=== PATIENT | male | born 1950 | race Caucasian/White ===

== ENCOUNTER 2016-11-22 14:09 | Outpatient (CLI) | payer MEDICARE, OTHER | END 2016-11-22 14:10 | disposition short-term general hospital (02) | DX: R09.89 Other specified symptoms and signs involving the circulatory and respiratory systems (principal) | CPT/HCPCS: A0170; A0425; A0429 ==

== ENCOUNTER 2016-11-27 21:11 | Emergency (ER) | payer MEDICARE, OTHER ==
--- NOTE | 2016-11-27 21:51 | ED Physician Documentation ---
PD HPI MALE - Stated complaint Stated Complaint: MALE - Chief complaint Chief Complaint: Abd Pain - History obtained from History obtained from: Patient - History of Present Illness Timing - onset: Today (he had had urinary retention and had villalba placed last week, with removal of it this morning as voiding trial. He still had retention so villalba replaced this afternoon. He developed blood in villalba soon after replacement (but had left the Urologist office). Having some feeling of blockage out the villalba this evening. Call Urologist who directed him to come and get it irrigated.) Timing - duration: Hours Timing - details: Gradual onset, Still present Associated symptoms: Hematuria, Villalba problem Review of Systems Constitutional: denies: Fever, Chills : reports: Hematuria PD PAST MEDICAL HISTORY - Past Medical History Cardiovascular: Congestive heart failure, Hypertension, Atrial fibrillation Respiratory: Other Neuro: CVA GI: Other : Benign prostate hypertrophy Other Past Medical History: CKD - Present Medications Home Medications: Ambulatory Orders Medication Instructions Recorded Confirmed Aspirin 81 mg PO DAILY 11/27/16 11/27/16 Benazepril HCl 40 mg PO DAILY 11/27/16 11/27/16 Cholecalciferol (Vitamin D3) 2,000 units PO PRN PRN 11/27/16 11/27/16 [Vitamin D3] Doxazosin [Cardura] 2 mg PO DAILY 11/27/16 11/27/16 Furosemide 20 mg PO DAILY 11/27/16 11/27/16 Ipratropium/Albuterol Sulfate 3 ml IH PRN PRN 11/27/16 11/27/16 [Iprat-Albut 0.5-3(2.5) mg/3 ml] [place]-3/Dha/Epa/Fish Oil [Fish Oil 1,000 mg PO DAILY 11/27/16 11/27/16 1,000 mg Softgel] Omeprazole 20 mg PO DAILY 11/27/16 11/27/16 Phenazopyridine [Pyridium] 200 mg PO TID PRN #15 tablet 11/27/16 Pravastatin [Pravachol] 40 mg ORAL DAILY 11/27/16 11/27/16 Tamsulosin [Flomax] 0.4 mg PO DAILY 11/27/16 11/27/16 - Allergies Allergies/Adverse Reactions: Allergies Allergy/AdvReac Type Severity Reaction Status Date / Time codeine AdvReac Unknown Verified 11/27/16 21:20 - Social History Does the pt smoke?: Yes Smoking Status: Current every day smoker Does the pt drink ETOH?: Yes Does the pt have substance abuse?: No - Immunizations Immunizations: TDAP >10years/unknown PD ED PE NORMAL - Vitals Vital signs reviewed: Yes - General General: Alert and oriented X 3, No acute distress, Well developed/nourished - Cardiac Cardiac: RRR, No murmur - Respiratory Respiratory: Clear bilaterally - Male Male : Other (villalba in place; no blood from the meatus. Blood with clots in the villalba. ) - Rectal Rectal: Deferred - Back Back: No CVA TTP - Derm Derm: Normal color, Warm and dry Results - Vitals Vitals: Vital Signs - 24 hr 11/27/16 11/27/16 21:15 23:10 Temperature 36.7 C Heart Rate 86 62 Respiratory 18 16 Rate Blood Pressure 191/89 H 198/106 H O2 Saturation 95 95 Oxygen O2 Source Room air PD MEDICAL DECISION MAKING - ED course Complexity details: considered differential (nurse drained/irrigated the villalba and it drained well. ) Departure - Departure Disposition: 01 Home, Self Care Clinical Impression: Villalba catheter problem Qualifiers: Encounter type: initial encounter Qualified Code(s): T83.9XXA - Unspecified complication of genitourinary prosthetic device, implant and graft, initial encounter Condition: Stable Record reviewed to determine appropriate education?: Yes Instructions: ED Catheter Care Villalba Follow-Up: Joyce Swanson MD [Primary Care Provider] - Prescriptions: Phenazopyridine [Pyridium] 200 mg PO TID PRN #15 tablet PRN Reason: Pain Comments: Drink lots of fluids. Phenazopyridine as needed for discomfort. Tylenol for pain as needed. Discharge Date/Time: 11/27/16 23:19
[2016-11-27] MEDS ORDERED: HYDROcod/ACETAM 5/325 MG TABLET PO STA (22:56)
[2016-11-27] MEDS ORDERED: PHENAZOPYRIDINE 100 MG TABLET PO STA (22:56)
[2016-11-27] MEDS ORDERED: HYDROcod/ACETAM 5/325 MG TABLET ONE (23:03)
[2016-11-27] MEDS ORDERED: PHENAZOPYRIDINE 100 MG TABLET PO ONE ×2 (23:04)
[2016-11-27 23:12] VITALS: BP 198/106
== END 2016-11-27 23:19 | disposition home or self-care (01) ==
LOC: ED 21:11
DX: T83.098A Other mechanical complication of other urinary catheter, initial encounter (principal); I12.9 Hypertensive chronic kidney disease with stage 1 through stage 4 chronic kidney disease, or unspecified chronic kidney disease; N18.9 Chronic kidney disease, unspecified; Z86.73 Personal history of transient ischemic attack (TIA), and cerebral infarction without residual deficits; F17.200 Nicotine dependence, unspecified, uncomplicated; Z79.82 Long term (current) use of aspirin
CPT/HCPCS: 99282; 99283; A9270

== ENCOUNTER 2016-12-02 22:54 | Emergency (ER) | payer MEDICARE, OTHER ==
[2016-12-03] LABS: PH,URINE 5.5 PH (5.0-7.5)
[2016-12-03 00:05] LABS: BILIRUBIN,URINE NEGATIVE (NEGATIVE)
[2016-12-03] MEDS ORDERED: TRIAMCINOLONE 0.1% CREAM 15 GM TUBE TOP STA (00:15)
[2016-12-03] MEDS ORDERED: CIPROFLOXACIN 250 MG TABLET PO STA (01:45)
[2016-12-03] MEDS ORDERED: CIPROFLOXACIN 250 MG TABLET PO ONE (01:50)
--- NOTE | 2016-12-03 02:12 | ED Physician Documentation ---
History of Present Illness - Stated complaint Stated Complaint: CATHETER PAIN - Chief complaint Chief Complaint: Abd Pain - Additonal information Additional information: Patient is a 66-year-old man who presents with leakage of urine from around his Rowe catheter. This patient was diagnosed with acute urinary retention 3 days ago and a Rowe catheter was placed. He had complicating clots required replacement of the Rowe catheter with a 3 lm type. He presents tonight with the complaint of decreased urine output and increasing lower abdominal pain. He denies any fever or chills. There is no chest pain, shortness of breath, nausea, vomiting constipation or diarrhea. He does have a history of congestive heart failure but he feels that his symptoms are well controlled. He also has a history of chronic kidney disease. He says he has blood work done 3 days ago that was reviewed and felt to be unchanged. He has a follow-up appointment with urology on Sunday at which point in time they will try and remove the Rowe catheter. Review of systems: For pertinent positive and negatives in the review of systems please see history of present illness. Otherwise all other systems have been reviewed and are negative. Dragon disclaimer: Parts of this medical record were created using voice recognition technology. Because of the inherent limitations of this system occasional same sounding word substitutions do occur and persist despite proofreading. Please read the document for context. Review of Systems Ten Systems: 10 systems reviewed and negative Constitutional: denies: Fever, Chills, Myalgias Cardiac: denies: Chest pain / pressure, Palpitations Respiratory: denies: Dyspnea, Cough GI: reports: Abdominal Pain, Abdominal Swelling. denies: Nausea, Vomiting : reports: Unable to Void, Hematuria Musculoskeletal: denies: Neck pain, Back pain, Extremity pain, Joint pain, Extremity swelling Neurologic: denies: Generalized weakness, Focal weakness, Numbness, Difficulty speaking PD PAST MEDICAL HISTORY - Past Medical History Cardiovascular: Congestive heart failure, Hypertension, Atrial fibrillation Respiratory: Other Neuro: CVA GI: Other : Benign prostate hypertrophy - Present Medications Home Medications: Ambulatory Orders Medication Instructions Recorded Confirmed Aspirin 81 mg PO DAILY 11/27/16 11/27/16 Benazepril HCl 40 mg PO DAILY 11/27/16 11/27/16 Cholecalciferol (Vitamin D3) 2,000 units PO PRN PRN 11/27/16 11/27/16 [Vitamin D3] Doxazosin [Cardura] 2 mg PO DAILY 11/27/16 11/27/16 Furosemide 20 mg PO DAILY 11/27/16 11/27/16 Ipratropium/Albuterol Sulfate 3 ml IH PRN PRN 11/27/16 11/27/16 [Iprat-Albut 0.5-3(2.5) mg/3 ml] [place]-3/Dha/Epa/Fish Oil [Fish Oil 1,000 mg PO DAILY 11/27/16 11/27/16 1,000 mg Softgel] Omeprazole 20 mg PO DAILY 11/27/16 11/27/16 Phenazopyridine [Pyridium] 200 mg PO TID PRN #15 tablet 11/27/16 Pravastatin [Pravachol] 40 mg ORAL DAILY 11/27/16 11/27/16 Tamsulosin [Flomax] 0.4 mg PO DAILY 11/27/16 11/27/16 Ciprofloxacin HCl [Cipro] 500 mg PO BID #6 tablet 12/03/16 - Allergies Allergies/Adverse Reactions: Allergies Allergy/AdvReac Type Severity Reaction Status Date / Time codeine AdvReac Unknown Verified 12/02/16 23:10 - Social History Does the pt smoke?: Yes Smoking Status: Current every day smoker Does the pt drink ETOH?: Yes Does the pt have substance abuse?: No - Immunizations Immunizations: TDAP >10years/unknown PD ED PE NORMAL - Vitals Vital signs reviewed: Yes - General General: Alert and oriented X 3, No acute distress - HEENT HEENT: Atraumatic, PERRL - Neck Neck: Supple, no meningeal sign, No bony TTP, No JVD, No bruit - Cardiac Cardiac: RRR, No murmur - Respiratory Respiratory: No respiratory distress - Abdomen Abdomen: Normal bowel sounds Results - Vitals Vitals: Vital Signs - 24 hr 12/02/16 12/03/16 23:10 01:24 Temperature 37.2 C Heart Rate 90 87 Respiratory 16 14 Rate Blood Pressure 209/91 H 191/88 H O2 Saturation 95 95 Oxygen O2 Source Room air - Labs Labs: Laboratory Tests 12/02/16 23:45 Urine Color ORANGE Urine Clarity CLOUDY Urine pH 5.5 Ur Specific [place] 1.015 Urine Protein 100 H Urine Glucose (UA) NEGATIVE Urine Ketones NEGATIVE Urine Occult Blood LARGE H Urine Nitrite POSITIVE H Urine Bilirubin NEGATIVE Urine Urobilinogen 1 (NORMAL) Ur Leukocyte Esterase TRACE H Urine RBC 11-25 H Urine WBC 6-10 H Ur Squamous Epith Cells NONE SEEN Urine Bacteria Moderate H PD MEDICAL DECISION MAKING - ED course ED course: Patient is a 66-year-old man who had a Rowe catheter placed for acute urinary retention 3 days ago. He presents tonight with hematuria and recurrent acute urinary retention secondary to Rowe catheter dysfunction. The patient otherwise is doing well he does have some chronic medical problems including congestive heart failure that appear to be stable clinically. The Rowe catheter was irrigated and afterward we obtained about 1800 cc of urine. The urine had some blood and had a few white cells in it. Rechecked the patient is doing well I checked his lower abdomen with portable ultrasound. There is no evidence of any residual urinary retention or formed clots in the bladder. The patient was given a single dose of ciprofloxacin will be maintained on Cipro for 3 days until hopefully his Rowe catheter can be removed on Sunday. We did irrigate the Rowe catheter again here in emergency department and a urine is now clear. Disposition: To home Clinical impression: 1.Acute Rowe catheter dysfunction secondary to blood clot 2. Mild pyuria-possible urinary tract infection 3. Congestive heart failure-clinically stable Departure - Departure Disposition: Home, Self Care Clinical Impression: Acute urinary retention Rowe catheter problem Qualifiers: Encounter type: initial encounter Qualified Code(s): T83.9XXA - Unspecified complication of genitourinary prosthetic device, implant and graft, initial encounter Instructions: Hematuria, UTI, ED Catheter Care Rowe, ED Retention Urinary Male Prescriptions: Ciprofloxacin HCl [Cipro] 500 mg PO BID #6 tablet
[2016-12-03 02:35] VITALS: BP 185/85
== END 2016-12-03 02:20 | disposition home or self-care (01) ==
LOC: ED 22:54
DX: T83.091A Other mechanical complication of indwelling urethral catheter, initial encounter (principal); R33.8 Other retention of urine; Y84.6 Urinary catheterization as the cause of abnormal reaction of the patient, or of later complication, without mention of misadventure at the time of the procedure; N39.0 Urinary tract infection, site not specified; R31.9 Hematuria, unspecified; I13.0 Hypertensive heart and chronic kidney disease with heart failure and stage 1 through stage 4 chronic kidney disease, or unspecified chronic kidney disease; N18.9 Chronic kidney disease, unspecified; I50.9 Heart failure, unspecified; I48.91 Unspecified atrial fibrillation; Z79.82 Long term (current) use of aspirin; F17.200 Nicotine dependence, unspecified, uncomplicated
CPT/HCPCS: 81001; 99283; A9270

== ENCOUNTER 2016-12-03 16:29 | Outpatient (CLI) | payer MEDICARE, OTHER | END 2016-12-03 16:30 | disposition critical access hospital (66) | LOC: EMS 16:29 | PROVIDERS: ATTEND Surgery | DX: R39.9 Unspecified symptoms and signs involving the genitourinary system (principal) | CPT/HCPCS: A0425; A0429 ==

== ENCOUNTER 2016-12-03 16:56 | Emergency (ER) | payer MEDICARE, OTHER ==
--- NOTE | 2016-12-03 17:34 | ED Physician Documentation ---
History of Present Illness - Stated complaint Stated Complaint: MALE - Chief complaint Chief Complaint: General - History obtained from History obtained from: Patient, Family () - History of Present Illness Timing: Other (He was hospitalized November 20 in [place] for 3 days for fluid overload, sounds like enlarged prostate was the original issue. He had an indwelling Rowe catheter replacement 3 days ago by the urologist to a 3 day because of some clot issues and was seen last night for irrigation. He has had really no drainage from the Rowe since and he does have urinary urgency.) Review of Systems Constitutional: denies: Fever, Chills, Myalgias Cardiac: denies: Chest pain / pressure, Palpitations Respiratory: denies: Dyspnea, Cough GI: denies: Abdominal Pain PD PAST MEDICAL HISTORY - Past Medical History Cardiovascular: Congestive heart failure, Hypertension, Atrial fibrillation Respiratory: Other Neuro: CVA GI: Other : Benign prostate hypertrophy - Present Medications Home Medications: Ambulatory Orders Medication Instructions Recorded Confirmed Aspirin 81 mg PO DAILY 11/27/16 12/03/16 Benazepril HCl 40 mg PO DAILY 11/27/16 12/03/16 Cholecalciferol (Vitamin D3) 2,000 units PO PRN PRN 11/27/16 12/03/16 [Vitamin D3] Doxazosin [Cardura] 2 mg PO DAILY 11/27/16 12/03/16 Furosemide 20 mg PO DAILY 11/27/16 12/03/16 Ipratropium/Albuterol Sulfate 3 ml IH PRN PRN 11/27/16 12/03/16 [Iprat-Albut 0.5-3(2.5) mg/3 ml] [place]-3/Dha/Epa/Fish Oil [Fish Oil 1,000 mg PO DAILY 11/27/16 12/03/16 1,000 mg Softgel] Omeprazole 20 mg PO DAILY 11/27/16 12/03/16 Phenazopyridine [Pyridium] 200 mg PO TID PRN #15 tablet 11/27/16 12/03/16 Pravastatin [Pravachol] 40 mg ORAL DAILY 11/27/16 12/03/16 Tamsulosin [Flomax] 0.4 mg PO DAILY 11/27/16 12/03/16 Ciprofloxacin HCl [Cipro] 500 mg PO BID #6 tablet 12/03/16 12/03/16 - Allergies Allergies/Adverse Reactions: Allergies Allergy/AdvReac Type Severity Reaction Status Date / Time codeine AdvReac Unknown Verified 12/02/16 23:10 - Social History Does the pt smoke?: Yes Smoking Status: Current every day smoker Does the pt drink ETOH?: Yes Does the pt have substance abuse?: No - Immunizations Immunizations: TDAP >10years/unknown PD ED PE NORMAL - Vitals Vital signs reviewed: Yes - General General: Alert and oriented X 3, No acute distress - Cardiac Cardiac: RRR, No murmur - Respiratory Respiratory: No respiratory distress, Clear bilaterally - Abdomen Abdomen: Non tender - Male Male : Other (Rowe bag has maybe 100 mL of bloody urine in it, it is not opaque though. He says it was last emptied at 5 AM.) - Extremities Extremities: Other (Pretty significant bilateral pitting pedal edema) - Neuro Neuro: Alert and oriented X 3, Normal speech Results - Vitals Vitals: Vital Signs - 24 hr 12/03/16 16:58 Temperature 36.2 C L Heart Rate 92 Respiratory 18 Rate Blood Pressure 177/104 H O2 Saturation 96 Oxygen O2 Source Room air PD MEDICAL DECISION MAKING - ED course ED course: Catheter was irrigated by the RN and immediately began working again. It was not bloody. He was observed for a couple of hours and it appeared to be working with good urinary drainage and no clots. Departure - Departure Disposition: 01 Home, Self Care Clinical Impression: Acute urinary retention Rowe catheter problem Qualifiers: Encounter type: initial encounter Qualified Code(s): T83.9XXA - Unspecified complication of genitourinary prosthetic device, implant and graft, initial encounter Condition: Good Record reviewed to determine appropriate education?: Yes Comments: Follow-up with urologist in 2 days as scheduled. Return if worse in the interim. Your blood pressure was elevated today on check into the emergency department. This does not mean that you have hypertension, it is a common phenomenon to come to the emergency department and have elevated blood pressure. I recommend that she see her primary care physician within the week to have it rechecked when you are feeling better.
[2016-12-03 19:35] VITALS: BP 186/96
== END 2016-12-03 19:35 | disposition home or self-care (01) ==
LOC: EDUNIT# → ED 16:56
DX: T83.091A Other mechanical complication of indwelling urethral catheter, initial encounter (principal); R33.8 Other retention of urine; Y84.6 Urinary catheterization as the cause of abnormal reaction of the patient, or of later complication, without mention of misadventure at the time of the procedure; I11.0 Hypertensive heart disease with heart failure; I50.9 Heart failure, unspecified; I48.91 Unspecified atrial fibrillation; Z79.82 Long term (current) use of aspirin; F17.200 Nicotine dependence, unspecified, uncomplicated
CPT/HCPCS: 51798; 99282; 99283

== ENCOUNTER 2017-01-16 16:01 | Emergency (ER) | payer MEDICARE, OTHER ==
--- NOTE | 2017-01-16 16:11 | ED Physician Documentation ---
PD HPI MALE - Stated complaint Stated Complaint: MALE - Chief complaint Chief Complaint: General - History obtained from History obtained from: Patient - History of Present Illness Timing - onset: Today (feeling that the villalba is draining minimal to none today. Feeling of lower abd bladder fullness.) Timing - duration: Hours Timing - details: Abrupt onset, Still present PD HPI MALE CONTRIB FACTORS: Indwelling catheter (for the past couple months. ) Similar symptoms before: Diagnosis (urinary retention and has had villalba in for couple months, with trials of having it out, but ends with retention again. Had cardiac stress test recently as prelude to getting TURP.) Review of Systems Constitutional: denies: Fever, Chills GI: denies: Nausea, Vomiting, Diarrhea : reports: Unable to Void PD PAST MEDICAL HISTORY - Past Medical History Past Medical History: Yes Cardiovascular: Congestive heart failure, Hypertension, Atrial fibrillation Respiratory: Other Neuro: CVA GI: Other : Benign prostate hypertrophy - Present Medications Home Medications: Ambulatory Orders Medication Instructions Recorded Confirmed Aspirin 81 mg PO DAILY 11/27/16 01/16/17 Benazepril HCl 40 mg PO DAILY 11/27/16 01/16/17 Cholecalciferol (Vitamin D3) 2,000 units PO PRN PRN 11/27/16 01/16/17 [Vitamin D3] Doxazosin [Cardura] 2 mg PO DAILY 11/27/16 01/16/17 Furosemide 20 mg PO DAILY 11/27/16 01/16/17 Ipratropium/Albuterol Sulfate 3 ml IH PRN PRN 11/27/16 01/16/17 [Iprat-Albut 0.5-3(2.5) mg/3 ml] [place]-3/Dha/Epa/Fish Oil [Fish Oil 1,000 mg PO DAILY 11/27/16 01/16/17 1,000 mg Softgel] Omeprazole 20 mg PO DAILY 11/27/16 01/16/17 Phenazopyridine [Pyridium] 200 mg PO TID PRN #15 tablet 11/27/16 01/16/17 Pravastatin [Pravachol] 40 mg ORAL DAILY 11/27/16 01/16/17 Tamsulosin [Flomax] 0.4 mg PO BID 11/27/16 01/16/17 Albuterol Sulfate [Proair Hfa 2 puffs PO Q4HR PRN 08/29/17 08/29/17 Inhaler] Carvedilol 1 tab PO BID 01/16/17 01/16/17 Finasteride 5 mg PO DAILY 01/16/17 01/16/17 Mupirocin 1 applic TP TID #15 oint...g. 01/16/17 Prednisone 10 mg PO DAILY 01/16/17 01/16/17 Sulfamethox/Trimeth 800/160 1 each PO BID #14 tablet 01/16/17 [Bactrim Ds 800/160] - Allergies Allergies/Adverse Reactions: Allergies Allergy/AdvReac Type Severity Reaction Status Date / Time codeine AdvReac Unknown Verified 12/02/16 23:10 - Social History Does the pt smoke?: Yes Smoking Status: Current every day smoker Does the pt drink ETOH?: Yes Does the pt have substance abuse?: No - Immunizations Immunizations: TDAP >10years/unknown PD ED PE NORMAL - Vitals Vital signs reviewed: Yes - General General: Alert and oriented X 3, No acute distress, Well developed/nourished - Male Male : Other (villalba in place. Some redness with yellow mild discharge at meatus. Sedmient in the drainage. ) - Derm Derm: Normal color, Warm and dry - Extremities Extremities: No deformity, No tenderness to palpate, No edema, No calf tenderness / cord Results - Vitals Vitals: Vital Signs - 24 hr 01/16/17 01/16/17 16:05 16:14 Temperature 36.2 C L Heart Rate 94 Respiratory 18 Rate Blood Pressure 224/110 H O2 Saturation 96 Oxygen O2 Source Room air - Labs Labs: Laboratory Tests 01/16/17 16:38 Urine Color YELLOW Urine Clarity HAZY Urine pH 6.0 Ur Specific [place] 1.020 Urine Protein 100 H Urine Glucose (UA) NEGATIVE Urine Ketones NEGATIVE Urine Occult Blood LARGE H Urine Nitrite POSITIVE H Urine Bilirubin NEGATIVE Urine Urobilinogen 0.2 (NORMAL) Ur Leukocyte Esterase SMALL H Urine RBC 11-25 H Urine WBC >25 H Urine WBC Clumps PRESENT Ur Squamous Epith Cells FEW Squamous Urine Bacteria Moderate H Ur Microscopic Review INDICATED Urine Culture Comments INDICATED PD MEDICAL DECISION MAKING - ED course Complexity details: considered differential, d/w patient Departure - Departure Disposition: 01 Home, Self Care Clinical Impression: Cystitis Villalba catheter problem Qualifiers: Encounter type: initial encounter Qualified Code(s): T83.9XXA - Unspecified complication of genitourinary prosthetic device, implant and graft, initial encounter Condition: Stable Record reviewed to determine appropriate education?: Yes Instructions: ED UTI Cystitis Male Follow-Up: Joyce Swanson MD [Primary Care Provider] - Prescriptions: Sulfamethox/Trimeth 800/160 [Bactrim Ds 800/160] 1 each PO BID #14 tablet Mupirocin 1 applic TP TID #15 oint...g. Comments: Continue the care of the Villalba catheter that you have been doing. The urine does show some signs of infection to it and this may have increased the amount of sediment that led to the clogging of it. Drink lots of fluids. Start Bactrim antibiotic twice daily for a week. There is also some redness and irritation at the end of the penis where the catheter comes out and apply mupirocin ointment to that area twice daily for concern of an infection there as well. Follow-up with your primary care in about a week. Discharge Date/Time: 01/16/17 18:15
[2017-01-16 16:15] VITALS: BP 224/110
[2017-01-16] MEDS ORDERED: LIDOCAINE 2% URO-JET 5 ML SYRINGE UR ONE (16:20)
[2017-01-16 17:01] LABS: BILIRUBIN,URINE NEGATIVE (NEGATIVE)
[2017-01-16 17:03] LABS: UA w/ MICROSCOPIC CHARGE YES
[2017-01-16] MEDS ORDERED: SULFAMETH/TRIMETH DS 800/160 MG TABLET PO STA (17:10)
[2017-01-16 17:12] LABS: UR CULTURE IF IND INDICATED; WBC,URINE >25 /HPF (0-3)
[2017-01-16] MEDS ORDERED: SULFAMETH/TRIMETH DS 800/160 MG TABLET PO ONE (17:29)
== END 2017-01-16 18:15 | disposition home or self-care (01) ==
LOC: ED 16:01
DX: N30.90 Cystitis, unspecified without hematuria (principal); T83.518A Infection and inflammatory reaction due to other urinary catheter, initial encounter; I11.0 Hypertensive heart disease with heart failure; I50.9 Heart failure, unspecified; I48.91 Unspecified atrial fibrillation; N40.0 Benign prostatic hyperplasia without lower urinary tract symptoms; Z86.73 Personal history of transient ischemic attack (TIA), and cerebral infarction without residual deficits; Z79.82 Long term (current) use of aspirin; F17.200 Nicotine dependence, unspecified, uncomplicated
CPT/HCPCS: 51702; 81001; 87070; 87077; 87086; 87181; 87205; 99282; 99283; A9270; 81003

== ENCOUNTER 2017-01-17 15:10 | Emergency (ER) | payer MEDICARE, OTHER ==
[2017-01-17 15:24] VITALS: BP 177/91
[2017-01-17] MEDS ORDERED: LIDOCAINE 2% URO-JET 5 ML SYRINGE UR ONE (15:33)
--- NOTE | 2017-01-17 16:06 | ED Physician Documentation ---
PD HPI MALE - Stated complaint Stated Complaint: CATH CLOGGED - Chief complaint Chief Complaint: General - History obtained from History obtained from: Patient - History of Present Illness Timing - onset: How many hours ago (2-3) Timing - duration: Hours Timing - details: Abrupt onset (he says the villalba had been working okay and then stopped draining today. tried to irrigate it but some in but no fluid out. He feels full bladder.), Still present Associated symptoms: Villalba problem Similar symptoms before: Diagnosis (enlarged prostate and has had villalba for 1-2 months. Pending TURP with Urology.) Recently seen: Emergency Dept (had villalba change recently and treated for UTI.) Review of Systems Constitutional: denies: Fever, Chills GI: denies: Nausea, Vomiting PD PAST MEDICAL HISTORY - Past Medical History Past Medical History: Yes Cardiovascular: Congestive heart failure, Hypertension, Atrial fibrillation Respiratory: Other Neuro: CVA GI: Other : Benign prostate hypertrophy - Present Medications Home Medications: Ambulatory Orders Medication Instructions Recorded Confirmed Aspirin 81 mg PO DAILY 11/27/16 01/16/17 Benazepril HCl 40 mg PO DAILY 11/27/16 01/16/17 Cholecalciferol (Vitamin D3) 2,000 units PO PRN PRN 11/27/16 01/16/17 [Vitamin D3] Doxazosin [Cardura] 2 mg PO DAILY 11/27/16 01/16/17 Furosemide 20 mg PO DAILY 11/27/16 01/16/17 Ipratropium/Albuterol Sulfate 3 ml IH PRN PRN 11/27/16 01/16/17 [Iprat-Albut 0.5-3(2.5) mg/3 ml] [place]-3/Dha/Epa/Fish Oil [Fish Oil 1,000 mg PO DAILY 11/27/16 01/16/17 1,000 mg Softgel] Omeprazole 20 mg PO DAILY 11/27/16 01/16/17 Phenazopyridine [Pyridium] 200 mg PO TID PRN #15 tablet 11/27/16 01/16/17 Pravastatin [Pravachol] 40 mg ORAL DAILY 11/27/16 01/16/17 Tamsulosin [Flomax] 0.4 mg PO BID 11/27/16 01/16/17 Albuterol Sulfate [Proair Hfa 2 puffs PO Q4HR PRN 01/16/17 01/16/17 Inhaler] Carvedilol 1 tab PO BID 01/16/17 01/16/17 Finasteride 5 mg PO DAILY 01/16/17 01/16/17 Mupirocin 1 applic TP TID #15 oint...g. 01/16/17 Prednisone 10 mg PO DAILY 01/16/17 01/16/17 Sulfamethox/Trimeth 800/160 1 each PO BID #14 tablet 01/16/17 [Bactrim Ds 800/160] - Allergies Allergies/Adverse Reactions: Allergies Allergy/AdvReac Type Severity Reaction Status Date / Time codeine AdvReac Unknown Verified 01/17/17 15:24 - Social History Does the pt smoke?: Yes Smoking Status: Current every day smoker Does the pt drink ETOH?: Yes Does the pt have substance abuse?: No - Immunizations Immunizations: TDAP >10years/unknown PD ED PE NORMAL - Vitals Vital signs reviewed: Yes - General General: Alert and oriented X 3, No acute distress, Well developed/nourished - Male Male : Other (villalba in place, flushes some but no urine out. bladder scan showing full bladder. ) - Back Back: No CVA TTP - Derm Derm: Normal color, Warm and dry Results - Vitals Vitals: Vital Signs - 24 hr 01/17/17 15:10 Temperature 36.4 C L Heart Rate 90 Respiratory 14 Rate Blood Pressure 177/91 H O2 Saturation 100 Oxygen O2 Source Room air PD MEDICAL DECISION MAKING - ED course Complexity details: re-evaluated patient (villalba was clogged with sediment. 18 rather than 16 F placed. no clots/blood. Urine flow is good now. ), considered differential, d/w patient Departure - Departure Disposition: 01 Home, Self Care Clinical Impression: Villalba catheter problem Qualifiers: Encounter type: initial encounter Qualified Code(s): T83.9XXA - Unspecified complication of genitourinary prosthetic device, implant and graft, initial encounter Condition: Stable Record reviewed to determine appropriate education?: Yes Instructions: ED Catheter Care Villalba Follow-Up: Joyce Swanson MD [Primary Care Provider] - Comments: Continue your prior medications and treatments. Consider irrigating the Villalba 3 or 4 times a day regularly for the next couple of days to reduce sediment buildup. Return if problems. Follow-up with urology as planned. Discharge Date/Time: 01/17/17 16:20
== END 2017-01-17 16:20 | disposition home or self-care (01) ==
LOC: ED 15:10
DX: T83.098A Other mechanical complication of other urinary catheter, initial encounter (principal); I11.0 Hypertensive heart disease with heart failure; I50.9 Heart failure, unspecified; I48.91 Unspecified atrial fibrillation; N40.0 Benign prostatic hyperplasia without lower urinary tract symptoms; Z86.73 Personal history of transient ischemic attack (TIA), and cerebral infarction without residual deficits; F17.200 Nicotine dependence, unspecified, uncomplicated
CPT/HCPCS: 51700; 51702; 99283

== ENCOUNTER 2017-02-18 15:05 | Emergency (ER) | payer MEDICARE, OTHER ==
[2017-02-18 15:16] VITALS: BP 162/69
--- NOTE | 2017-02-18 15:34 | ED Physician Documentation ---
History of Present Illness - Stated complaint Stated Complaint: CATHETER BLOCKAGE - Chief complaint Chief Complaint: General - History obtained from History obtained from: Patient, Family - History of Present Illness Timing: Other (He is postop day 5 from a TURP done by Dr. Vargas in [place]. Sounds like the morning after the surgery they tried to remove the Rowe but he was unable to urinate so another Rowe was placed, it was with difficulty that time and required the urologist to do it himself. Today has the sensation that his catheter might be blocked as he is having smaller than normal output and there is urine coming around the catheter out of his penis. He has a sense of urinary urgency despite taking Pyridium.) Review of Systems Constitutional: denies: Fever, Chills GI: denies: Abdominal Pain, Vomiting, Diarrhea PD PAST MEDICAL HISTORY - Past Medical History Cardiovascular: Congestive heart failure, Hypertension, Atrial fibrillation Respiratory: Other Neuro: CVA GI: Other : Benign prostate hypertrophy - Present Medications Home Medications: Ambulatory Orders Medication Instructions Recorded Confirmed Aspirin 81 mg PO DAILY 11/27/16 01/16/17 Benazepril HCl 40 mg PO DAILY 11/27/16 01/16/17 Cholecalciferol (Vitamin D3) 2,000 units PO PRN PRN 11/27/16 01/16/17 [Vitamin D3] Doxazosin [Cardura] 2 mg PO DAILY 11/27/16 01/16/17 Furosemide 20 mg PO DAILY 11/27/16 01/16/17 Ipratropium/Albuterol Sulfate 3 ml IH PRN PRN 11/27/16 01/16/17 [Iprat-Albut 0.5-3(2.5) mg/3 ml] Thermal-3/Dha/Epa/Fish Oil [Fish Oil 1,000 mg PO DAILY 11/27/16 01/16/17 1,000 mg Softgel] Omeprazole 20 mg PO DAILY 11/27/16 01/16/17 Phenazopyridine [Pyridium] 200 mg PO TID PRN #15 tablet 11/27/16 01/16/17 Pravastatin [Pravachol] 40 mg ORAL DAILY 11/27/16 01/16/17 Tamsulosin [Flomax] 0.4 mg PO BID 11/27/16 01/16/17 Albuterol Sulfate [Proair Hfa 2 puffs PO Q4HR PRN 08/29/17 08/29/17 Inhaler] Carvedilol 1 tab PO BID 01/16/17 01/16/17 Finasteride 5 mg PO DAILY 01/16/17 01/16/17 Mupirocin 1 applic TP TID #15 oint...g. 01/16/17 Prednisone 10 mg PO DAILY 01/16/17 01/16/17 Sulfamethox/Trimeth 800/160 1 each PO BID #14 tablet 01/16/17 [Bactrim Ds 800/160] Sulfamethoxazole/Trimethoprim 1 each PO BID 7 Days tablet 02/18/17 [Sulfamethoxazole-Tmp Ds Tablet] - Allergies Allergies/Adverse Reactions: Allergies Allergy/AdvReac Type Severity Reaction Status Date / Time codeine AdvReac Unknown Verified 02/18/17 15:12 - Social History Does the pt smoke?: Yes Smoking Status: Current every day smoker Does the pt drink ETOH?: Yes Does the pt have substance abuse?: No - Immunizations Immunizations: TDAP >10years/unknown PD ED PE NORMAL - Vitals Vital signs reviewed: Yes - General General: Alert and oriented X 3, No acute distress - Abdomen Abdomen: Normal bowel sounds, Soft, Non tender - Male Male : Other (Rowe in place draining clearish urine. No obvious clots. Bedside ultrasound demonstrates an empty bladder except for the Rowe balloon.) - Neuro Neuro: Alert and oriented X 3, Normal speech - Psych Psych: Normal mood, Normal affect Results - Vitals Vitals: Vital Signs - 24 hr 02/18/17 15:10 Temperature 36.6 C Heart Rate 79 Respiratory 20 Rate Blood Pressure 162/69 H O2 Saturation 98 Oxygen O2 Source Room air - Labs Labs: Laboratory Tests 02/18/17 15:42 Urine Color ORANGE Urine Clarity CLEAR Urine pH Ur Specific [place] Urine Protein Urine Glucose (UA) Urine Ketones Urine Occult Blood Urine Nitrite Urine Bilirubin Urine Urobilinogen Ur Leukocyte Esterase Urine RBC TNTC H Urine WBC 11-25 H Ur Epithelial Cells FEW Renal Tubular Ur Squamous Epith Cells Not Reportable Urine Bacteria Few Ur Microscopic Review INDICATED Urine Culture Comments INDICATED PD MEDICAL DECISION MAKING - ED course ED course: 66-year-old gentleman with a sensation of urinary retention with catheter in place, however bedside ultrasound demonstrates a empty bladder with the exception of the Rowe balloon. Case was discussed by phone with his urologist , Dr. Vargas who recommended switching his antibiotic from Cipro to something else , and flushing his catheter which I did and was easy, there were no clots or gross blood. We considered adding an anticholinergic but since that will make his risk of retention higher after the Rowe is removed we decided against it. Departure - Departure Disposition: 01 Home, Self Care Clinical Impression: Rowe catheter problem Qualifiers: Encounter type: initial encounter Qualified Code(s): T83.9XXA - Unspecified complication of genitourinary prosthetic device, implant and graft, initial encounter Condition: Good Record reviewed to determine appropriate education?: Yes Instructions: ED Catheter Care Rowe Prescriptions: Sulfamethoxazole/Trimethoprim [Sulfamethoxazole-Tmp Ds Tablet] 1 each PO BID 7 Days tablet Comments: Follow-up with your urologist in 5 days as scheduled. Return if worse. Your blood pressure was elevated today on check into the emergency department. This does not mean that you have hypertension, it is a common phenomenon to come to the emergency department and have elevated blood pressure. I recommend that she see your primary care physician within the week to have it rechecked when you are feeling better.
[2017-02-18 16:30] LABS: UA w/ MICROSCOPIC CHARGE YES
[2017-02-18 16:48] LABS: UR CULTURE IF IND INDICATED
== END 2017-02-18 16:57 | disposition home or self-care (01) ==
LOC: ED 15:05
DX: T83.098A Other mechanical complication of other urinary catheter, initial encounter (principal); R33.9 Retention of urine, unspecified; I11.0 Hypertensive heart disease with heart failure; I50.9 Heart failure, unspecified; I48.91 Unspecified atrial fibrillation; Z86.73 Personal history of transient ischemic attack (TIA), and cerebral infarction without residual deficits; N40.0 Benign prostatic hyperplasia without lower urinary tract symptoms; Z79.82 Long term (current) use of aspirin; F17.200 Nicotine dependence, unspecified, uncomplicated
CPT/HCPCS: 81001; 81003; 87086; 99283; 99284

== ENCOUNTER 2017-03-06 16:40 | Outpatient (CLI) | payer MEDICARE, OTHER | END 2017-03-06 16:41 | disposition E | LOC: EMS 16:40 | PROVIDERS: ATTEND Surgery ==